=== PATIENT | male | born 1940 | race Caucasian/White ===

== ENCOUNTER 2018-09-04 09:24 | Emergency (ER) | payer MEDICARE, BC ==
[2018-09-04 10:24] LABS: ABSOLUTE NEUTROPHIL COUNT 5.01; BASO % 0.1 % (0-6); EOS % 1.3 % (0-6); GRAN % 70.8 % (47-80); HEMATOCRIT 42.1 % (42.0-52.0); HEMOGLOBIN 14.2 gm/dl (14.0-18.0); LYMPH % 16.1 % (16-45); MEAN CELL VOLUME 96.1 fl (81-97); MEAN CORPUSCULAR HEMOGLOBIN 32.4 pg (27-33); MEAN CORPUSCULAR HGB CONC 33.7 g/dl (32-36); MEAN PLATELET VOLUME 10.2 fl (7.4-10.4); MONO % 11.7 % (0-9); PLATELET COUNT 226 K/uL (130-400); RED BLOOD COUNT 4.38 M/uL (4.40-5.70); RED CELL DISTRIBUTION WIDTH 13.4 % (11.5-14.5); WHITE BLOOD COUNT W/O DIFF 7.1 K/uL (4.2-12.2)
[2018-09-04 10:35] LABS: BLOOD UREA NITROGEN 20 mg/dL (8-23)
[2018-09-04 10:36] LABS: CREATININE 0.9 mg/dL (0.7-1.2); EST GLOMERULAR FILTRATION RATE > 60 mL/min
[2018-09-04 10:38] LABS: GLUCOSE,RANDOM 157 mg/dL (74-109)
[2018-09-04 10:41] LABS: ALB/GLOB RATIO 1.7 (1.1-1.8); ALBUMIN 4.4 g/dL (4.0-5.0); ALKALINE PHOSPHATASE 62 U/L (40-129); ALT/SGPT 17 U/L (<41); AST/SGOT 16 U/L (10.0-50.0)
[2018-09-04] MEDS ORDERED: 0.9 % SODIUM CHLORIDE 1,000 ML BAG IV ONE (11:01)
[2018-09-04] MEDS ORDERED: KETOROLAC 30 MG/ML VIAL IVP ONE (11:03)
[2018-09-04 11:11] LABS: URINE APPEARANCE CLEAR; URINE BILIRUBIN NEGATIVE (NEGATIVE); URINE BLOOD NEGATIVE (NEGATIVE); URINE COLOR YELLOW; URINE GLUCOSE (UA) NEGATIVE (NEGATIVE); URINE KETONE NEGATIVE (NEGATIVE); URINE LEUKOCYTE ESTERASE NEGATIVE (NEGATIVE); URINE NITRITE NEGATIVE (NEGATIVE); URINE PROTEIN NEGATIVE (NEGATIVE); URINE UROBILINOGEN 0.2 E.U./dL (0.20 - 1.00)
--- NOTE | 2018-09-04 11:15 | Emergency Department Record ---
History of Present Illness - General Chief Complaint: Back Pain/Injury Stated Complaint: LOWER LEFT SIDED BACK PAIN Time Seen by Provider: 09/04/18 10:02 Source: Patient Mode of Arrival: Ambulatory Limitations: No limitations - History of Present Illness Initial Comments: pt has had l flank pain for days. he does not recall an injury or strain. the pain is nonreproducible MD Complaint: Back pain Onset/Timin -: Days(s) Similar Symptoms Previously: No Place: Home Radiation: None Severity: Moderate Severity scale (1-10): 10 Quality: Aching, Burning Consistency: Constant Improves With: None Worsens With: None Context: Bending Associated Symptoms: Denies other symptoms Treatments Prior to Arrival: Cold therapy - Related Data Home Medications Medication Instructions Recorded Confirmed Last Taken Aspirin [Aspirin EC] 81 mg PO DAILY 09/04/18 09/04/18 1 Day Ago ~09/03/18 Cholecalciferol (Vitamin D3) 2,000 unit PO DAILY 09/04/18 09/04/18 1 Day Ago [Vitamin D3] ~09/03/18 Lisinopril 2.5 mg PO DAILY 09/04/18 09/04/18 1 Day Ago ~09/03/18 Metformin HCl 500 mg PO TID 09/04/18 09/04/18 1 Day Ago ~09/03/18 Metoprolol Tartrate 12.5 mg PO DAILY 09/04/18 09/04/18 1 Day Ago ~09/03/18 Pravastatin Sodium [Pravachol] 40 mg PO DAILY 09/04/18 09/04/18 1 Day Ago ~09/03/18 Previous Rx's Medication Instructions Recorded Cyclobenzaprine HCl [Flexeril] 10 mg PO TID #14 tablet 09/04/18 Ibuprofen [Motrin 600Mg] 600 mg PO Q8H #20 tablet 09/04/18 Allergies Allergy/AdvReac Type Severity Reaction Status Date / Time No Known Drug Allergies Allergy Verified 09/04/18 09:36 Travel Screening - Travel/Exposure Within Last 30 Days Have you traveled within the last 30 days?: No - Travel/Exposure Within Last Year Have you traveled outside the [place] in the last year?: No - Additonal Travel Details Have you been exposed to anyone with a communicable illness?: No - Travel Symptoms Symptom Screening: None Review of Systems Reviewed: No additional complaints except as noted below Constitutional: Reports: As per HPI. Denies: Chills, Fever, Malaise, Night sweats, Weakness, Weight change Eyes: Reports: As per HPI. Denies: Eye discharge, Eye pain, Photophobia, Vision change ENT: Reports: As per HPI. Denies: Congestion, Dental pain, Ear pain, Epistaxis, Hearing loss, Throat pain Respiratory: Reports: As per HPI. Denies: Cough, Dyspnea, Hemoptysis, Stridor, Wheezes Cardiovascular: Reports: As per HPI. Denies: Arrhythmia, Chest pain, Dyspnea on exertion, Edema, Murmurs, Orthopnea, Palpitations, Paroxysmal nocturnal dyspnea, Rheumatic Fever, Syncope Endocrine: Reports: As per HPI. Denies: Fatigue, Heat or cold intolerance, Polydipsia, Polyuria Gastrointestinal: Reports: As per HPI. Denies: Abdominal pain, Constipation, Diarrhea, Hematemesis, Hematochezia, Melena, Nausea, Vomiting Genitourinary: Reports: As per HPI. Denies: Dysuria, Frequency, Hematuria, Incontinence, Retention, Testicular pain, Testicular mass, Urgency Musculoskeletal: Reports: As per HPI. Denies: Arthralgia, Back pain, Gout, Joint swelling, Myalgia, Neck pain Skin: Reports: As per HPI. Denies: Bruising, Change in color, Change in hair/nails, Lesions, Pruritus, Rash Neurological: Reports: As per HPI. Denies: Abnormal gait, Confusion, Headache, Numbness, Paresthesias, Seizure, Tingling, Tremors, Vertigo, Weakness Psychiatric: Reports: As per HPI. Denies: Anxiety, Auditory hallucinations, Depression, Homicidal thoughts, Suicidal thoughts, Visual hallucinations Hematological/Lymphatic: Reports: As per HPI. Denies: Anemia, Blood Clots, Easy bleeding, Easy bruising, Swollen glands Past Medical History - SOCIAL HISTORY Smoking Status: Former smoker Alcohol Use: Occasional Drug Use: None - RESPIRATORY Hx Respiratory Disorders: Yes Hx Asthma: Yes Hx COPD: Yes Comment:: asbestos exposure - CARDIOVASCULAR Hx Cardio Disorders: Yes Hx Cardiac Cath: Yes (10 stents) Hx Heart Attack: Yes - NEURO Hx Neuro Disorders: No - GI Hx GI Disorders: No - Hx Bladder Problem: Yes Hx Prostate Problems: Yes (slow urine) - ENDOCRINE Hx Endocrine Disorders: Yes Hx Diabetes: Yes Hx Thyroid Disease: No - MUSCULOSKELETAL Hx Musculoskeletal Disorders: Yes Hx Arthritis: Yes - PSYCH Hx Psych Problems: Yes - HEMATOLOGY/ONCOLOGY Hx Hematology/Oncology Disorders: No Family Medical History Any Significant Family History?: Yes Physical Exam - General General Appearance: Alert, Oriented x3, Cooperative, No acute distress - Head Head exam: Normal inspection - Eye Eye exam: Normal appearance, PERRL, EOMI Pupils: Normal accommodation - ENT ENT exam: Normal exam, Mucous membranes moist, Normal external ear exam, Normal orophraynx, TM's normal bilaterally Ear exam: Normal external inspection. negative: External canal tenderness Nasal Exam: Normal inspection. negative: Discharge, Sinus tenderness Mouth exam: Normal external inspection, Tongue normal Teeth exam: Normal inspection. negative: Dental caries Throat exam: Normal inspection. negative: Tonsillar erythema, Tonsillar exudate - Neck Neck exam: Normal inspection, Full ROM. negative: Tenderness - Respiratory Respiratory exam: Normal lung sounds bilaterally. negative: Respiratory distress - Cardiovascular Cardiovascular Exam: Normal rhythm, Normal heart sounds, Bradycardia - GI/Abdominal GI/Abdominal exam: Soft, Normal bowel sounds, Pulsatile mass. negative: Tenderness - Rectal Rectal exam: Deferred - exam: Deferred - Extremities Extremities exam: Normal inspection, Full ROM, Normal capillary refill. negative: Tenderness - Back Back exam: Reports: Normal inspection, Full ROM. Denies: Muscle spasm, Rash noted, Tenderness - Neurological Neurological exam: Alert, CN II-XII intact, Normal gait, Oriented X3 - Psychiatric Psychiatric exam: Normal affect, Normal mood - Skin Skin exam: Dry, Intact, Normal color, Warm Course Vital Signs 09/04/18 09:28 Temperature 97.8 F Pulse Rate 47 L Respiratory 18 Rate Blood Pressure 144/87 Pulse Ox 98 - Reevaluation(s) Reevaluation #1: 09/04/18 11:[address] shows 3.[address] also shows pleural and parenchymal thickening seen w asbestos exposure. pt has had asbestos exposure. Medical Decision Making - Lab Data Result diagrams: 09/04/18 10:12 09/04/18 10:12 Lab Results 09/04/18 09/04/18 Range/Units 10:12 10:12 WBC 7.1 (4.2-12.2) K/uL RBC 4.38 L (4.40-5.70) M/uL Hgb 14.2 (14.0-18.0) gm/dl Hct 42.1 (42.0-52.0) % MCV 96.1 (81-97) fl MCH 32.4 (27-33) pg MCHC 33.7 (32-36) g/dl RDW 13.4 (11.5-14.5) % Plt Count 226 (130-400) K/uL MPV 10.2 (7.4-10.4) fl Gran % 70.8 (47-80) % Lymphocytes % 16.1 (16-45) % Monocytes % 11.7 H (0-9) % Eosinophils % 1.3 (0-6) % Basophils % 0.1 (0-6) % Absolute Neutrophils 5.01 Sodium 139 (136-145) mmol/L Potassium 5.0 H (3.4-4.5) mmol/L Chloride 102 (98-107) mmol/L Carbon Dioxide 25.0 (22-29) mmol/L Anion Gap 12.0 (7-16) BUN 20 (8-23) mg/dL Creatinine 0.9 (0.7-1.2) mg/dL Estimated GFR > 60 mL/min Random Glucose 157 H (74-109) mg/dL Calcium 9.3 (8.8-10.2) mg/dL Total Bilirubin 0.50 (0.2-1.0) mg/dL AST 16 (10.0-50.0) U/L ALT 17 (<41) U/L Alkaline Phosphatase 62 (40-129) U/L Total Protein 7.0 (6.6-8.7) g/dL Albumin 4.4 (4.0-5.0) g/dL Globulin 2.6 (1.4-4.8) gm/dL Albumin/Globulin Ratio 1.7 (1.1-1.8) Disposition Disposition: Discharge Clinical Impression: Lumbar radiculopathy, acute, AAA (abdominal aortic aneurysm) without rupture, Pleural thickening Disposition: Home, Self-Care Condition: (1) Good Instructions: Lumbar Radiculopathy (ED), Thoracic Aortic Aneurysm (ED) Additional Instructions: follow up with family doctor and body engineer regarding 3.7cm abdominal aortic aneuyrsm, plavix, plural and parenchymal thickening from asbestos exposure. have follow up studies in 6mos. return sooner if worse. Prescriptions: Cyclobenzaprine HCl [Flexeril] 10 mg PO TID #14 tablet Ibuprofen [Motrin 600Mg] 600 mg PO Q8H #20 tablet Forms: Patient Portal Access Quality - Quality Measures Quality Measures: N/A - Blood Pressure Screening Does Patient Have Any of the Following: No Blood Pressure Classification: Pre-Hypertensive BP Reading Systolic Measurement: 144 Diastolic Measurement: 87 Screening for High Blood Pressure: < Pre-Hypertensive BP, F/U Documented > [G8950] Pre-Hypertensive Follow-up Interventions: Follow-up with rescreen every year.
--- NOTE | 2018-09-05 07:17 | CT SCAN REPORT ---
DATE: 09/04/2018 at 1020. EXAM: CT OF THE ABDOMEN AND PELVIS WITHOUT CONTRAST. HISTORY: LEFT FLANK PAIN NEAR ILIAC CREST FOR A FEW DAYS WITH WORSENING UPON MOVEMENT. TECHNIQUE: Thin-collimation helical CT examination of the abdomen and pelvis is performed without oral or intravenous contrast administration. Lack of oral and intravenous contrast utilization limits evaluation of the bowel and solid viscera, respectively. COMPARISON: None. FINDINGS: There is moderate calcified pleural plaque in the posterior right hemithorax base and mild to moderate calcified pleural plaque in the left hemithorax base. On the right there is associated pleural thickening and probable lung parenchymal scarring. The etiology of this is uncertain. This can be seen with asbestos exposure, post-traumatic change or the result of remote infection. Linear scarring versus atelectasis within each lung base. No pleural or pericardial effusion. There is calcification throughout the visualized right coronary artery. The liver, spleen, pancreas, and adrenal glands are normal in appearance. The gallbladder is unremarkable, and no biliary ductal dilatation is seen. The kidneys are normal in size and position, and they are smoothly marginated. No definite nephrolithiasis nor renal mass. The proximal left renal collecting system is at the upper limits of normal in caliber. No ureteral calculus is visualized. No intrinsic urinary bladder abnormality is seen, though evaluation is limited by lack of distension. No pelvic mass nor adenopathy. There is mild fat density prominence in each inguinal canal, left greater than right, consistent with spermatic cord lipomas or fat within small inguinal hernia sacs. No gross bowel dilatation nor bowel wall thickening. The appendix is not visualized, though no inflammatory changes are noted in its expected location. No free intraperitoneal air. There is diffuse atherosclerosis. There is fusiform ectasia of the infrarenal abdominal aorta measuring 3.3 x 3.7 cm. No periaortic adenopathy nor fluid collection. No lytic or blastic bone lesion. There are degenerative changes scattered throughout the visualized spine. There is ankylosis of the sacroiliac joints. There are moderate degenerative changes of the hips. IMPRESSION: 1. NO CONVINCING CT EVIDENCE OF AN ACUTE INTRA-ABDOMINAL NOR INTRAPELVIC PROCESS. THE PROXIMAL LEFT RENAL COLLECTING SYSTEM IS BORDERLINE PROMINENT VERSUS PERIPELVIC RENAL CYSTS. NO OBSTRUCTIVE UROPATHY NOR NEPHROLITHIASIS. 2. RELATIVELY LONG SEGMENT OF DILATATION/ECTASIA OF THE INFRARENAL ABDOMINAL AORTA MEASURING 8.0 CM IN LENGTH WITH A MAXIMUM DIAMETER OF 3.7 CM. NO EVIDENCE OF ANEURYSM LEAK. 3. CALCIFIED PLEURAL PLAQUES IN EACH HEMITHORAX BASE, DISCUSSED ABOVE. THERE IS APPARENT PLEURAL THICKENING/PARENCHYMAL SCARRING ASSOCIATED WITH THE RIGHT BASILAR PLAQUE. COMPARISON TO PRIOR EXAMINATIONS, IF ANY EXIST, IS RECOMMENDED TO CONFIRM STABILITY GIVEN THE ASSOCIATION OF [employer]HE[employer] WITH ASBESTOS EXPOSURE. Job Number: [id number] [facility]
== END 2018-09-04 12:26 | disposition home or self-care (01) ==
LOC: ER 09:24
DX: I71.4 Abdominal aortic aneurysm, without rupture (principal); M54.16 Radiculopathy, lumbar region; J92.0 Pleural plaque with presence of asbestos; J44.9 Chronic obstructive pulmonary disease, unspecified; Z87.891 Personal history of nicotine dependence; I25.2 Old myocardial infarction; E11.9 Type 2 diabetes mellitus without complications; Z79.84 Long term (current) use of oral hypoglycemic drugs
CPT/HCPCS: 74176; 80053; 81003; 85025; 96374; 99284; J1885; J7030

== ENCOUNTER 2019-03-20 12:03 | Emergency (ER) | payer BC, MEDICARE ==
--- NOTE | 2019-03-20 12:20 | Emergency Department Record ---
History of Present Illness - General Chief complaint: GI Bleed Stated complaint: BLOODY STOOL/PAINFUL Time Seen by Provider: 03/20/19 12:14 Source: Patient Mode of Arrival: Ambulatory Limitations: No limitations - History of Present Illness Initial comments: 78 yo male presents with a concern about drainage from near the rectum. He states over the weekend he had a painful area near the anus. Today the area opened and is draining. He saw blood in the toilet and was concerned. No fever. No dysuria. No diarrhea. No abdominal pain. No history of the same in the past. The pain greatly improved when it started draining. Dr Mayorga is his PCP MD complaint: Other (blood in the toilet) -: Days(s) Radiation: Other Quality: Other (mild pain now) Improves with: None Worsens with: None Context: Other Associated Symptoms: Denies other symptoms - Related Data Previous Rx's Medication Instructions Recorded Ibuprofen [Motrin 600Mg] 600 mg PO Q8H #20 tablet 09/04/18 Levofloxacin [Levaquin] 500 mg PO DAILY #7 tablet 03/20/19 Metronidazole [Flagyl] 500 mg PO TID #21 tablet 03/20/19 Allergies Allergy/AdvReac Type Severity Reaction Status Date / Time No Known Drug Allergies Allergy Verified 03/20/19 12:21 Review of Systems Constitutional: Denies: Chills, Fever, Malaise, Weakness Eyes: Denies: Eye discharge ENT: Denies: Congestion, Throat pain Respiratory: Denies: Cough Cardiovascular: Denies: Chest pain, Palpitations, Syncope Endocrine: Denies: Fatigue, Polydipsia, Polyuria Gastrointestinal: Denies: Abdominal pain, Diarrhea, Nausea, Vomiting Genitourinary: Denies: Dysuria, Frequency, Hematuria Musculoskeletal: Denies: Arthralgia, Back pain, Myalgia Skin: Denies: Bruising, Change in color, Rash Neurological: Denies: Headache Psychiatric: Denies: Anxiety Hematological/Lymphatic: Denies: Easy bleeding, Easy bruising Past Medical History - SOCIAL HISTORY Smoking Status: Former smoker Drug Use: None - RESPIRATORY Hx Respiratory Disorders: Yes Hx Asthma: Yes Hx COPD: Yes Comment:: asbestos exposure - CARDIOVASCULAR Hx Cardio Disorders: Yes Hx Cardiac Cath: Yes (10 stents) Hx Heart Attack: Yes - NEURO Hx Neuro Disorders: No - GI Hx GI Disorders: No - Hx Bladder Problem: Yes Hx Prostate Problems: Yes (slow urine) - ENDOCRINE Hx Endocrine Disorders: Yes Hx Diabetes: Yes Hx Thyroid Disease: No - MUSCULOSKELETAL Hx Musculoskeletal Disorders: Yes Hx Arthritis: Yes - PSYCH Hx Psych Problems: Yes - HEMATOLOGY/ONCOLOGY Hx Hematology/Oncology Disorders: No Physical Exam - General General Appearance: Alert, Oriented x3, Cooperative, No acute distress Limitations: No limitations - Head Head exam: Atraumatic, Normal inspection - Eye Eye exam: Normal appearance, PERRL. negative: Conjunctival injection, Scleral icterus - ENT ENT exam: Normal exam, Mucous membranes moist Ear exam: Normal external inspection Nasal Exam: Normal inspection Mouth exam: Normal external inspection - Neck Neck exam: Normal inspection - Respiratory Respiratory exam: Normal lung sounds bilaterally. negative: Rhonchi, Stridor, Wheezes - Cardiovascular Cardiovascular Exam: Regular rate, Normal rhythm, Normal heart sounds - GI/Abdominal GI/Abdominal exam: Soft. negative: Distended, Guarding, Tenderness - Rectal Rectal exam: Heme (-) stool, Other (ON the right side at about 4 o clock he had a 5+mm opening with pus and bloody drainage, mild local cellulitis). negative: Fecal impaction, Heme (+) stool, Hemorrhoids, Mass, Normal inspection, Prostate tenderness - exam: Normal inspection, Other (No scrotal involvement). negative: Scrotal swelling - Extremities Extremities exam: Normal inspection - Back Back exam: Denies: CVA tenderness (R), CVA tenderness (L), Tenderness - Neurological Neurological exam: Alert, Oriented X3 - Psychiatric Psychiatric exam: Normal affect, Normal mood - Skin Skin exam: Dry, Intact, Normal color, Warm Course Vital Signs 03/20/19 12:13 Temperature 97.4 F L Pulse Rate [ 79 Pulse Ox Probe] Respiratory 20 Rate Blood Pressure 134/106 [Left Arm] Pulse Ox 97 - Reevaluation(s) Reevaluation #1: 03/20/19 13:03 The CBC was reviewed Normal WBC Hgb 12.7 03/20/19 13:09 The CMP was reviewed Normal CR Glucose is 302 03/20/19 13:10 The patient is ready for CT 03/20/19 14:[address] scan was reviewed No definite discrete abscess formation. The findings were discussed with the patient. The plan will be for warm sitz baths to promote continued drainage He will be given antibiotics and follow up referral for General Surgery He is to call his PCP for a recheck and to monitor his glucose chcf. He currently does not perform home glucometer checks. 03/20/19 15:00 The case was discussed with Dr Contreras The patient can follow up in the office to ensure healing We discussed reasons to return immediate if any concerns, fever, pain, Medical Decision Making - Lab Data Result diagrams: 03/20/19 12:30 03/20/19 12:30 Disposition Disposition: Discharge Clinical Impression: Perianal abscess Disposition: Home, Self-Care Condition: (1) Good Instructions: Rectal Abscess (ED) Additional Instructions: Call your doctor for a recheck later this week if possible Return to the ER if worse, pain, persistent bleeding Twice daily perform a warm bath to promote continued drainage You have been referred to the Surgery Clinic for a recheck to ensure healing Prescriptions: Metronidazole [Flagyl] 500 mg PO TID #21 tablet Levofloxacin [Levaquin] 500 mg PO DAILY #7 tablet Referrals: Mustapha Contreras [DOCTOR OF OSTEOPATH] - Forms: Patient Portal Access Time of Disposition: 14:39 Quality - Quality Measures Quality Measures: N/A - Blood Pressure Screening Does Patient Have Any of the Following: No Blood Pressure Classification: Pre-Hypertensive BP Reading Systolic Measurement: 123 Diastolic Measurement: 81 Screening for High Blood Pressure: < Pre-Hypertensive BP, F/U Documented > [G8950] Pre-Hypertensive Follow-up Interventions: Referral to alternative/primary care provider.
[2019-03-20 12:46] LABS: HEMATOCRIT 39.7 % (42.0-52.0); HEMOGLOBIN 12.9 gm/dl (14.0-18.0); MEAN CELL VOLUME 95.2 fl (81-97); MEAN CORPUSCULAR HEMOGLOBIN 30.9 pg (27-33); MEAN CORPUSCULAR HGB CONC 32.5 g/dl (32-36); MEAN PLATELET VOLUME 10.4 fl (7.4-10.4); PLATELET COUNT 277 K/uL (130-400); RED BLOOD COUNT 4.17 M/uL (4.40-5.70); WHITE BLOOD COUNT W/O DIFF 8.5 K/uL (4.2-12.2)
[2019-03-20] MEDS: METRONIDAZOLE IVPB 500 MG/100 ML BAG IVPB ONE (12:47)
[2019-03-20] MEDS: 0.9 % SODIUM CHLORIDE 1000ML 1,000 ML IV ONE (12:47)
[2019-03-20] MEDS: LEVOFLOXACIN 500 MG TABLET PO ONE (12:47)
[2019-03-20 12:57] LABS: PARTIAL THROMBOPLASTIN TIME 26.8 SECONDS (24.5-39.1); PROTHROMBIN TIME (PATIENT) 10.2 SECONDS (9.5-12.1)
[2019-03-20 12:59] LABS: BLOOD UREA NITROGEN 29 mg/dL (8-23); CREATININE 0.9 mg/dL (0.7-1.2); EST GLOMERULAR FILTRATION RATE > 60 mL/min
[2019-03-20 13:00] LABS: TOTAL PROTEIN 7.7 g/dL (6.6-8.7)
[2019-03-20 13:02] LABS: GLUCOSE,RANDOM 302 mg/dL (74-109)
[2019-03-20 13:05] LABS: ALB/GLOB RATIO 1.3 (1.1-1.8); ALBUMIN 4.3 g/dL (4.0-5.0); ALKALINE PHOSPHATASE 67 U/L (40-129); ALT/SGPT 13 U/L (<41); AST/SGOT 12 U/L (10.0-50.0)
--- NOTE | 2019-03-20 14:33 | CT SCAN REPORT ---
EXAMINATION: CT of the Pelvis with Intravenous Contrast. EXAM DATE: 03/20/2019 2:03 PM TECHNIQUE: A standard CT pelvis protocol was performed with intravenous contrast. Sagittal and chaudhari l images were reconstructed. IV Contrast: The type and amount of contrast is recorded within the medical record. INDICATION: perianal abscess. Attention right buttock with symptoms x3 days. COMPARISON: CT abdomen and pelvis noncontrast 09/04/2018. The current CT supervisor electronic coils radiograph does not disclose any acute abnormality. FINDINGS: Ureters & Bladder: Both distal ureters have a normal caliber and the urinary bladder is unremarkable . Gastrointestinal: No acute bowel abnormality is seen. Reproductive Organs: There are small hydroceles and small fat-containing inguinal hernias which appea rs similar. Lymphatic System: There is no adenopathy within the pelvis. Vasculature: The iliac arteries have a normal caliber. Peritoneum: There has developed a small amount of pelvic fluid. Retroperitoneum: There is no retroperitoneal mass, hemorrhage, or hematoma. Abdominal Wall & Musculoskeletal: In the soft tissues of the gluteal regions no acute abnormality is seen. In the posterior perianal region just to the right midline there is soft tissue asymmetry which is similar to the prior study without definite features to suggest a soft tissue abscess. Images at bone window demonstrate degenerative features without acute abnormality seen. IMPRESSION: At this time no specific CT findings of right perianal/gluteal soft tissue abscess. Interval development small amount of pelvic fluid. Additional findings as above similar to the prior study. Dictated by: Lewis Bowles MD on 03/20/2019 2:14 PM. .
== END 2019-03-20 15:14 | disposition home or self-care (01) ==
LOC: ER 12:03
DX: K61.0 Anal abscess (principal); I25.2 Old myocardial infarction; J44.9 Chronic obstructive pulmonary disease, unspecified; Z87.891 Personal history of nicotine dependence
CPT/HCPCS: 72193; 80053; 85027; 85610; 85730; 96365; 96366; 99284; J7030

== ENCOUNTER 2019-04-16 09:30 | Day surgery (SDC) | payer MEDICARE ==
[~2019-04-16 09:30] MED LIST: ACETAMINOPHEN 1,000 MG/100 ML BTL IVPB ONE
[2019-04-16] MEDS ORDERED: SEVOFLURANE 250 ML INH ONE (09:31)
[2019-04-16] MEDS ORDERED: LIDOCAINE 2% MDV (20MG/ML) 20ML VIAL IV ONE (09:31)
[2019-04-16] MEDS ORDERED: PROPOFOL 10 MG/ML VIAL IV ONE (09:31)
[2019-04-16] MEDS ORDERED: ONDANSETRON HCL IV 4 MG/2 ML VIAL IVP ONE (09:31)
[2019-04-16] MEDS ORDERED: FENTANYL PF 100MCG/2ML VIAL IV ONE (09:31)
[2019-04-16] MEDS ORDERED: MIDAZOLAM HCL 2MG/2ML VIAL IV ONE (09:31)
[2019-04-16] MEDS ORDERED: PHENYLEPHRINE HCL 10 MG/ML VIAL IVP ONE (09:31)
[2019-04-16] MEDS ORDERED: DIBUCAINE 30 GM TUBE TOP ONE (09:31)
[2019-04-16] MEDS ORDERED: GELATIN SPONGE,ABSORBABLE 12-7MM TP ONE (09:31)
[2019-04-16] MEDS ORDERED: BUPIVACAINE 0.25% W/EPI MPF 30ML VIAL SQ ONE (11:25)
[2019-04-16] MEDS ORDERED: RINGERS SOLUTION,LACTATED 1,000 ML IV ONE (11:39)
--- NOTE | 2019-04-17 06:00 | Operative Note ---
DATE OF SURGERY: 04/16/2019 SURGEON: Mustapha Contreras DO PREOPERATIVE DIAGNOSIS: Perianal fistula. POSTOPERATIVE DIAGNOSIS: Perianal fistula. OPERATION: Anal fistulotomy with marsupialization. INDICATION: The patient is a 78-year-old male whom I saw in the clinic about 2 weeks ago. He did have a perianal abscess which was drained. He developed a fistula postoperatively. We did discuss fistulotomy. Risks, benefits, and alternatives were discussed. Risks include bleeding, infection, incontinence, recurrence. He understood this fully. Thereafter, consent was signed and questions answered. PROCEDURE: The patient was taken to the operating room and placed in a supine position. General anesthesia was administered per the department of anesthesia. The patient was rotated in the lithotomy position. His perianal region was prepped and draped in sterile fashion. At this time, a 4-quadrant anal block was done. Linwood speculum was placed. The external opening was identified and a malleable probe was placed. This did enter at the level of the dentate line. At this time, a fistulotomy was done. This did not go through the sphincter complex. This was then marsupialized with 2-0 Vicryl in a running locking fashion. Hemostasis was noted. At this time, Gelfoam and IV cannula was placed. He was taken to recovery room in stable condition. FINDINGS AT THE TIME OF SURGERY: Anal fistula requiring fistulotomy. MTDD
== END 2019-04-16 12:51 | disposition home or self-care (01) ==
LOC: SUR 09:30
PROVIDERS: ATTEND Surgery
DX: K60.3 Anal fistula (principal); E11.9 Type 2 diabetes mellitus without complications; E78.00 Pure hypercholesterolemia, unspecified; I25.5 Ischemic cardiomyopathy; I25.10 Atherosclerotic heart disease of native coronary artery without angina pectoris; I25.2 Old myocardial infarction
CPT/HCPCS: 36416; 82948; J2370; J2405; J7120